=== PATIENT | male | born 1990 | race Caucasian/White ===

== ENCOUNTER 2016-10-14 15:35 | Emergency (ER) | payer OTHER ==
[~2016-10-14] VITALS: Ht 182.9 cm; Wt 102.3 kg
[2016-10-14 15:42] VITALS: BP 124/77; PULSE 79; RESP 24; O2SAT 100
[2016-10-14] MEDS ORDERED: LEVE500T3 PO (16:10)
[2016-10-14] MEDS ORDERED: DEP250A PO (16:10)
[2016-10-14] MEDS ORDERED: PHN100C PO (16:10)
[2016-10-14 16:20] LABS: BASOPHILS % (AUTO) 0.3 % (0-3); EOSINOPHILS % (AUTO) 2.1 % (0-5); MONOCYTES % (AUTO) 7.2 % (4-12); Mean Corpuscular Hemoglobin 30.3 pg (27.0-35.0); Mean Corpuscular Volume 84.1 fL (81-100); NEUTROPHILS % (AUTO) 61.4 % (40-74); Platelet Count 228 bil/L (150-400)
--- NOTE | 2016-10-14 16:22 | ED.REPORT ---
HPI-Chest Pain Under 40 Date of Service October 14, 2016 ED Provider: Killian Hills MD Pt is a 26 y/o male w/ a hx of seizure disorder presenting to the ED c/o waxing and waning chest discomfort onset 13:30 today. Two days ago the patient was experiencing some mild dizziness. Yesterday he experienced a similar dizzy sensation. Today, he woke up experiencing nausea which dissipated. At 13:30 today he began experiencing waxing and waning CP. He has also been experiencing intermittent "wavy" vision for the past 3 days. He is prescribed Keppra, Phenytoin, and Valproic Acid for his seizure disorder. He started the Valproic acid 5 days ago and attributes his symptoms to this new medication. Nursing Notes Stated Complaint: CHEST PAIN Chief Complaint: Chest Pain Nursing Notes Reviewed: Yes Scheduled Divalproex DR (Depakote DR) 250 Mg Tablet 250 MG PO BID Swallowed whole without chewing to avoid local irritation of the mouth and throat. Levetiracetam (Levetiracetam) 500 Mg Tablet 1,500 MG PO BID Phenytoin Sodium ER (Dilantin) 100 Mg Capsule 300 MG PO HS General Time Seen by MD: 15:49 Chief Complaint Chest pain Hx Obtained From: Patient Arrived By: Walk-in Sudden in Onset?: No Onset Occurred: 1 - 4 hours ago Symptom Duration: Waxes and wanes Location: : Substernal Quality: Painful Severity: Current: No pain currently Severity: Maximum: Moderate Past Medical History Past Medical History Seizure disorder Past Surgical History None reported Smoking History Unknown if Ever Smoker Ambulatory Status Independent Review of Systems Respiratory: Reports: Pleuritic pain Cardiovascular: Reports: Chest pain GI: Reports: Nausea Complete sys rev & neg: except as marked. Eyes: Reports: Blurred bilateral Physical Exam Initial Vital Signs Vital Signs (First) Date Time Temp Pulse Resp B/P Pulse Ox O2 Delivery O2 Flow Rate FiO2 10/14/16 15:42 36.1 79 24 124/77 100 10/14/16 17:11 Room Air Initial VS: Reviewed, Vital signs normal Head / Eyes: Atraumatic, Normocephalic, PERRL Neck: Supple, Full range of motion Abdomen / GI: Soft, Non-tender, No guarding, No rebound, No distention Extremities: Vascular intact, Neuro intact, No swelling, No tenderness Skin: Warm, Dry, No cyanosis Psychiatric: Mood/affect normal, Behavior normal, Normal thought content General/Constitutional: Awake, Alert, No acute distress, Cooperative, Not toxic appearing Distress / Hydration: Positive: Dehydration mild Respiratory / Chest: Atraumatic, Breath sounds NL, Breath sounds = bilat, No respiratory distress, No rales, No rhonchi, No wheezing, No retractions, No stridor Cardiovascular: Heart rate NL, Regular rhythm, Heart sounds NL, No gallop, No murmurs, No rubs, Cap refill not delayed Neurologic: Oriented X3, Speech NL, No motor deficits, No sensory deficits, CN II - XII intact, Cerebellar NL, Memory NL No pronator drift ENT: Atraumatic, Airway patent Mouth: Positive: Mucous membranes dry (mild) Interpretation & Diagnostics Lab Results Interpretation Result Diagram: 10/14/16 1600 10/14/16 1600 Test 10/14/16 16:00 White Blood Count 7.6th/mm3 (3.8-10.1) Red Blood Count 5.34mil/mm3 (4.40-5.80) Hemoglobin 16.2g/dL (13.8-17.2) Hematocrit 44.9% (41.0-50.0) Mean Corpuscular Volume 84.1fL (81-100) Mean Corpuscular Hemoglobin 30.3pg (27.0-35.0) Mean Corpuscular Hemoglobin Concent 36.1% (32.0-37.0) Red Cell Distribution Width 12.6% (12.3-15.4) Platelet Count 228bil/L (150-400) Neutrophils (%) (Auto) 61.4% (40-74) Lymphocytes (%) (Auto) 28.7% (14-46) Monocytes (%) (Auto) 7.2% (4-12) Eosinophils (%) (Auto) 2.1% (0-5) Basophils (%) (Auto) 0.3% (0-3) Sodium Level 140mEq/L (134-144) Potassium Level 3.6mEq/L (3.5-5.2) Chloride Level 102mEq/L (97-108) Carbon Dioxide Level 22mmol/L (18-29) Blood Urea Nitrogen 15mg/dL (6-20) Creatinine 0.97mg/dL (0.76-1.27) Estimat Glomerular Filtration Rate 101mL/min (>59) Glucose Level 101mg/dL (60-99) Calcium Level 9.7mg/dL (8.5-10.1) Magnesium Level 1.8mg/dL (1.6-2.6) Total Bilirubin 0.4mg/dL (0.0-1.2) Aspartate Amino Transf (AST/SGOT) 21U/L (0-50) Alanine Aminotransferase (ALT/SGPT) 31U/L (0-44) Alkaline Phosphatase 110U/L (25-150) Troponin T < 0.010ug/L (0.0-0.011) Total Protein 7.5g/dL (6.4-8.4) Albumin 4.5g/dL (3.4-5.0) Hold Plasencia Top Tube Received (Received) ECG Interpretation ECG Interpretation: Sinus rhythm rate 84 ST elevation consistent with J point elevation Unremarkable EKG for age Time: 16:39 Interpreted by: ED physician Normal ECG Interpretation: No acute ischemic changes X-Ray Chest Interpretation Chest Xray Interpretation: IMPRESSION: No acute pulmonary process. Dictated by: Kaylee Kam M.D. on 10/14/2016 at 16:35 Approved by: Kaylee Kam M.D. on 10/14/2016 at 16:40 View: Portable, AP & lat Interpretation / Wet Read by: Interpret - Radiologist Re-Eval/Medical Decision Med Decision/Clinical Course Pt is a 26 y/o male w/ a hx of seizure disorder presenting to the ED c/o waxing and waning chest discomfort onset 13:30 today. Two days ago the patient was experiencing some mild dizziness. Yesterday he experienced a similar dizzy sensation. Today, he woke up experiencing nausea which dissipated. At 13:30 today he began experiencing waxing and waning CP. He has also been experiencing intermittent "wavy" vision for the past 3 days. He is prescribed Keppra, Phenytoin, and Valproic Acid for his seizure disorder. He started the Valproic acid 5 days ago and attributes his symptoms to this new medication. Here in the emergency department the patient is afebrile with stable vital signs and examination as above. EKG obtained and interpreted by myself as documented above. Labs notable as below: CBC: unremarkable CMP: unremarkable Troponin: negative CXR: Obtained, reviewed and interpreted by myself shows no evidence of infiltrates, effusions or pneumothorax. Cardiac and mediastinal silhouette normal. No bony or soft tissue abnormalities. Patient has multiple vague symptoms. Cause chest pain is unclear. He is very low risk for coronary artery disease I do not think that his presentation is related to acute coronary syndrome. Screening EKG and troponin are reassuring. No evidence of pneumonia or pneumothorax. No major risk factors for pulmonary embolism. Overall constellation of symptoms is quite vague including nausea, lightheadedness, nonspecific vision changes. This is all occurring in the setting of adding valproic acid bringing his number of antiepileptic medications to 3. I find it highly likely that at least some of his symptoms are probably related to medication side effects. He will follow up first thing with his neurologist on Sunday. I discussed options go forward and the patient prefers to hold his valproic acid for the meantime. Here he was treated with Zofran for nausea and drink fluids which he tolerated well. Prior to discharge follow-up and return precautions were reviewed in detail with the patient who verbalized understanding and agreement with the plan. The patient was discharged in stable condition. Re-Evaluation/Progress : Time of Eval: 16:57 Re-Evaluation/Progress Note: Pt rechecked. Informed pt of plan for treatment. Pt understands and agrees with plan for treatment. F/U instructions and RTER warnings given. All questions addressed. Counseled Regarding: Diagnosis, Lab results, Need for follow-up, When/why to return to ED Discharge & Departure Primary Impression: Medication side effect Encounter type: initial encounter Qualified Code: T88.7XXA - Unspecified adverse effect of drug or medicament, initial encounter Additional Impressions: Dizziness Chest discomfort History of epilepsy Polypharmacy Disposition: Home Discharge Condition All VS Reviewed: Yes Condition: Stable Additional Instructions: Thank you for seeking care at the emergency room. It is difficult for us to make definitive diagnoses in the ED but we believe that you are experiencing a medication side effect to the Valproic acid. Our primary goal today in the ED was to evaluate you for any life-threatening conditions. Your evaluation was reassuring. Your labs, chest x-ray, and EKG today were normal. I recommend you stop the Valproic acid until you meet with your neurologist. Meet with your neurologist on Sunday to discuss your medications. Call to set up an appointment. You should return to the ED immediately if you develop any new or worsening symptoms. Thank you for letting us partake in your care today. Referrals: [facility] Scribe Attestation Portions of this note were transcribed by Aroldo Linares. I, Dr. Hills personally performed the history, physical exam and medical decision-making; I reviewed and confirmed the accuracy of the information in the transcribed note. Signed by Tiago Hayes, 10/14/16 - 1639 Killian Hills MD October 14, 2016 16:22 AROLDO LINARES October 14, 2016 16:24
[2016-10-14 16:41] LABS: TROPONIN T < 0.010 ug/L (0.0-0.011)
--- NOTE | 2016-10-14 16:42 | DRSVH ---
PROCEDURE: X-RAY CHEST, TWO VIEWS ([id number]) INDICATIONS: chest pain TECHNIQUE: 2 views of the chest were acquired. COMPARISON: None. FINDINGS: Surgical changes and devices: None. Lungs and pleura: No pleural effusions or pneumothorax. Lungs are clear. Mediastinum: Mediastinal contours are normal. Heart size is normal. Bones and chest wall: No suspicious bony abnormalities. Soft tissues appear unremarkable. IMPRESSION: No acute pulmonary process. Dictated by: Kaylee Kam M.D. on 10/14/2016 at 16:35 Approved by: Kaylee Kam M.D. on 10/14/2016 at 16:40
[2016-10-14 16:52] LABS: Magnesium 1.8 mg/dL (1.6-2.6)
[2016-10-14 17:11] VITALS: BP 110/51; PULSE 83; RESP 12; O2SAT 98
== END 2016-10-14 17:25 | disposition home or self-care (01) ==
LOC: SED 15:35
DX: R07.2 Precordial pain (principal); R42 Dizziness and giddiness; T42.6X5A Adverse effect of other antiepileptic and sedative-hypnotic drugs, initial encounter; G40.909 Epilepsy, unspecified, not intractable, without status epilepticus; Y93.89 Activity, other specified; Y92.89 Other specified places as the place of occurrence of the external cause; Y99.8 Other external cause status; Z79.899 Other long term (current) drug therapy